=== PATIENT | male | born 1960 | race Caucasian/White ===

== ENCOUNTER 2017-06-30 11:06 | Emergency (ER) | payer OTHER ==
[~2017-06-30] VITALS: Ht 180.3 cm; Wt 106.8 kg
[~2017-06-30 11:06] MED LIST: PRILOSEC OTC20 MG PO
[2017-06-30] MEDS ORDERED: KEFLEX500 M4 PO ×2 (13:04→13:05)
== END 2017-06-30 13:30 ==
LOC: EDMED 11:06
PROC: 0HQGXZZ Repair Left Hand Skin, External Approach (ICD-10-PCS; principal; 2017-06-30)
DX: S62.633A Displaced fracture of distal phalanx of left middle finger, initial encounter for closed fracture (principal); S61.213A Laceration without foreign body of left middle finger without damage to nail, initial encounter; Z23 Encounter for immunization; W23.0XXA Caught, crushed, jammed, or pinched between moving objects, initial encounter; Y92.69 Other specified industrial and construction area as the place of occurrence of the external cause; Y99.0 Civilian activity done for income or pay